=== PATIENT | female | born 1985 | race Hispanic/Latino ===

== ENCOUNTER 2021-02-23 04:01 | Emergency (ER) | payer OTHER ==
[2021-02-23 05:01] LABS: Absolute Lymphocytes (CBC) 0.9 K/uL (0.7-4.9); Basophils % 0.5 % (0-1.3); Hematocrit 33.4 % (36.0-45.0); Lymphocytes % 13.9 % (15.3-44.8); MPV 8.1 fL (7.6-11.3); RBC Red Blood Cell Count 4.06 M/uL (3.86-4.86)
[2021-02-23 05:02] LABS: Urine Blood Negative (Negative); Urine Glucose Negative (Negative); Urine Protein Negative (Negative); Urine Specific Gravity 1.015 (1.005-1.030)
[2021-02-23] MEDS ORDERED: NA CHLORIDE 0.9% 1,000 ML ONE (05:08)
[2021-02-23] MEDS ORDERED: ONDANSETRON 4 MG/2 ML VIAL ONE (05:08)
[2021-02-23 05:19] LABS: ALT/SGPT 34 U/L (12-78); AST/SGOT 18 U/L (15-37); Albumin 2.8 g/dL (3.4-5.0); Alkaline Phosphatase 112 U/L (45-117); BUN Blood Urea Nitrogen 6 mg/dL (7-18); Bicarbonate 21 mmol/L (21-32); Bilirubin Direct 0.2 mg/dL (0-0.2); Bilirubin Total 0.3 mg/dL (0.2-1.0); Glucose Level 110 mg/dL (74-106); Magnesium 2.4 mg/dL (1.8-2.4); Potassium 3.6 mmol/L (3.5-5.1); Protein, Total 7.4 g/dL (6.4-8.2); Sodium Level 139 mmol/L (136-145)
[2021-02-23] MEDS ORDERED: CALCIUM GLUCONATE 1 GM IVPB 1 GM/50 ML BAG IV ONE (06:10)
--- NOTE | 2021-02-23 07:07 | ER ---
Nurse's Notes [facility] – [place], [place] Name: Antonette Lewis Age: 35 yrs Sex: Female : 1985 Arrival Date: 02/23/2021 Time: 04:07 Bed 16 Private MD: Diagnosis: Coronavirus infection, unspecified;Hypocalcemia-mild;UTI/ Urinary tract infection, site not specified Presentation: 02/23 04:12 Chief complaint: Patient states: covid + on 02/21/21 tonight patient was woken up with kc4 shakes and muscle twitching. Pt is 30 weeks . Coronavirus screen: Vaccine status: Patient reports being unvaccinated. Client presents with at least one sign or symptom that may indicate coronavirus-19. Standard/surgical mask placed on the client. Provider contacted for isolation considerations. Client reports previous positive COVID test result. Date of collection: February 21, 2021 Staff notified of need for isolation. Ebola Screen: Patient negative for fever greater than or equal to 101.5 degrees Fahrenheit, and additional compatible Ebola Virus Disease symptoms Patient denies exposure to infectious person. Patient denies travel to an Ebola-affected area in the 21 days before illness onset. No symptoms or risks identified at this time. Initial Sepsis Screen: Does the patient meet any 2 criteria? No. Patient's initial sepsis screen is negative. Does the patient have a suspected source of infection? No. Patient's initial sepsis screen is negative. Risk Assessment: Do you want to hurt yourself or someone else? Patient reports no desire to harm self or others. Onset of symptoms was February 21, 2021. 04:12 Method Of Arrival: Ambulatory [facility] 04:12 Acuity: ROSANA 4 kc4 Triage Assessment: 04:28 General: Appears in no apparent distress. obese, well nourished, Behavior is kc4 cooperative, appropriate for age, anxious. Pain: Denies pain. MANAGER LATIN: 04:28 Verified kc4 Historical: - Allergies: 04:28 No Known Allergies; kc4 - Home Meds: 04:28 zinc sulfate 50 mg zinc (220 mg) Oral tab [Active]; Vitamin D Oral [Active]; Vitamin C kc4 500 mg Oral tab [Active]; Vitamin Oral tab 1 tab once daily [Active]; - PMHx: 04:28 None; kc4 - PSHx: 04:28 None; kc4 - Immunization history:: Adult Immunizations up to date, Client reports having NOT received the Covid vaccine. - Social history:: Smoking status: Patient denies any tobacco usage or history of. Patient/guardian denies using alcohol, street drugs, IV drugs, over the counter diet medications, tobacco products. Screenin:32 Abuse screen: Denies threats or abuse. Nutritional screening: No deficits noted. On no kc4 prescribed diet Difficulty chewing/swallowing? No. Tuberculosis screening: No symptoms or risk factors identified. Never had TB. Possible symptoms: None Risk factors: None. Fall Risk None identified. No fall in past 12 months (0 pts). No secondary diagnosis (0 pts). No IV (0 pts). Ambulatory Aid- None/Bed Rest/Nurse Assist (0 pts). Gait- Normal/Bed Rest/Wheelchair (0 pts) Mental Status- Oriented to own ability (0 pts). Total Alexander Fall Scale indicates No Risk (0-24 pts). Assessment: 04:32 General: Appears in no apparent distress. obese, well nourished, Behavior is kc4 cooperative, appropriate for age, anxious, Reports muscle twitching and shakjng Denies fever, fatigue, chills. Pain: Denies pain. Neuro: No deficits noted. Cardiovascular: No deficits noted. Respiratory: No deficits noted. GI: No deficits noted. No signs and/or symptoms were reported involving the gastrointestinal system. : No deficits noted. No signs and/or symptoms were reported regarding the genitourinary system. EENT: No deficits noted. No signs and/or symptoms were reported regarding the EENT system. Derm: No deficits noted. No signs and/or symptoms reported regarding the dermatologic system. Musculoskeletal: No deficits noted. No signs and/or symptoms reported regarding the musculoskeletal system. 07:00 Reassessment: RECD REPORT FROM MICHELA GUERRA. 35YO HF P/W COVID+, SOB, 30 WK PREG. bp 07:11 Reassessment: PT D/C HOME AMBULATORY, DX WITH SARS-COVID AND UTI. bp Vital Signs: 04:12 BP 131 / 77 RA Sitting (auto/reg); Pulse 98; Resp 20; Temp 97.9; Pulse Ox 98% on R/A; kc4 Weight 136.08 kg; Height 5 ft. 3 in. (160.02 cm); Pain 0/10; 06:08 BP 138 / 78; Pulse 88; Resp 18; Temp 98.0; Pulse Ox 99% on R/A; Pain 0/10; kc4 07:00 BP 125 / 74; Pulse 88; Resp 16; Pulse Ox 100% ; bp 04:12 Body Mass Index 53.14 (136.08 kg, 160.02 cm) kc4 Vitals: 04:53 Heart Tones 150 bpm. kc4 Mary Coma Score: 04:32 Eye Response: spontaneous(4). Verbal Response: oriented(5). Motor Response: obeys kc4 commands(6). Total: 15. ED Course: 04:07 Patient arrived in ED. bp1 04:17 Gentry Simmons MD is Attending Physician. mh7 04:28 Triage completed. kc4 04:28 Arm band placed on left wrist. kc4 04:35 No provider procedures requiring assistance completed. kc4 04:37 Patient has correct armband on for positive identification. Bed in low position. Call kc4 light in reach. Side rails up X 1. 04:54 CBC with Automated Diff Sent. kc4 04:54 CBC with Diff Sent. kc4 04:54 Basic Metabolic Panel Sent. kc4 04:54 LFT's Sent. kc4 04:54 Magnesium Sent. kc4 05:03 Inserted saline lock: 20 gauge in right antecubital area, using aseptic technique. kc4 05:10 Michela Bhakta is Primary Nurse. kc4 07:10 IV discontinued, intact, bleeding controlled, No redness/swelling at site. Pressure bp dressing applied. Administered Medications: 04:58 Drug: Zofran (Ondansetron) 4 mg Route: IVP; Site: right antecubital; kc4 06:29 Follow up: Response: No adverse reaction bs2 04:58 Drug: NS 0.9% 1000 ml Route: IV; Rate: 1000 ml; Site: right antecubital; kc4 07:19 Follow up: IV Status: Completed infusion; IV Intake: 100ml bp 06:08 Drug: Calcium Gluconate 1 grams Route: IVPB; Infused Over: 60 mins; Site: right kc4 antecubital; 07:19 Follow up: IV Status: Completed infusion; IV Intake: 1000ml bp 06:48 Drug: Macrobid (nitrofurantoin) 100 mg Route: PO; kc4 07:09 Follow up: Response: No adverse reaction bp Intake: 07:19 IV: 1000ml; Total: 1000ml. bp 07:19 IV: 100ml; Total: 1100ml. bp Outcome: 07:06 Discharge ordered by . jhonathan 07:19 Discharged to home ambulatory. bp 07:19 Condition: stable 07:19 Discharge instructions given to patient, Instructed on discharge instructions, follow up and referral plans. medication usage, Demonstrated understanding of instructions, follow-up care, medications, Prescriptions given X 1. 07:20 Patient left the ED. bp Signatures: John Hernandez RN RN bp Elana Flores Maurice, MD MD 7 Heena Root RN RN bs2 Michela Bhakta 4 Corrections: (The following items were deleted from the chart) 04:31 04:28 Home Meds: None; kc4 kc4
--- NOTE | 2021-02-23 07:07 | EDPHYS ---
Physician Documentation [facility] Name: Antonette Lewis Age: 35 yrs Sex: Female : 1985 Arrival Date: 02/23/2021 Time: 04:07 Bed 16 Private MD: ED Physician Gentry Simmons HPI: 02/23 04:30 This 35 yrs old Female presents to ER via Ambulatory with complaints of mh7 Covid+, Cough, Shaky, Nasal Congestion. 04:30 The patient or guardian reports cough, that is intermittent, described as mild, with no mh7 sputum, Nasal congestion, muscle twitching. Onset: The symptoms/episode began/occurred 1 week(s) ago. Severity of symptoms: At their worst the symptoms were mild, 5 day(s) ago, in the emergency department the symptoms are unchanged. Modifying factors: The symptoms are alleviated by OTC cold preparation, the symptoms are aggravated by nothing. Associated signs and symptoms: Pertinent positives: nausea, rhinorrhea, Pertinent negatives: chest pain, diarrhea, ear ache, fever, sore throat, vomiting. Patient states that she tested positive for Covid recently. She is 30 weeks and has not had any complications during . She reports a mild cough and started having muscle twitching last night. She denies any headache, chest pain, abdominal pain, shortness of breath, vomiting, diarrhea, dizziness, numbness/tingling, or focal weakness.. BLOCK SETTER GYPSUM: 04:28 Verified kc4 Historical: - Allergies: 04:28 No Known Allergies; kc4 - Home Meds: 04:28 zinc sulfate 50 mg zinc (220 mg) Oral tab [Active]; Vitamin D Oral [Active]; Vitamin C kc4 500 mg Oral tab [Active]; Vitamin Oral tab 1 tab once daily [Active]; - PMHx: 04:28 None; kc4 - PSHx: 04:28 None; kc4 - Immunization history:: Adult Immunizations up to date, Client reports having NOT received the Covid vaccine. - Social history:: Smoking status: Patient denies any tobacco usage or history of. Patient/guardian denies using alcohol, street drugs, IV drugs, over the counter diet medications, tobacco products. ROS: 04:30 Constitutional: Negative for fever, chills, and weight loss, Eyes: Negative for injury, mh7 pain, redness, and discharge, ENT: Negative for injury, pain, and discharge, Neck: Negative for injury, pain, and swelling. 04:30 Cardiovascular: Negative for chest pain, palpitations, and edema. 04:30 Back: Negative for injury and pain, : Negative for injury, bleeding, discharge, and swelling, MS/Extremity: Negative for injury and deformity, Skin: Negative for injury, rash, and discoloration, Neuro: Negative for headache, weakness, numbness, tingling, and seizure, Psych: Negative for depression, anxiety, suicide ideation, homicidal ideation, and hallucinations, Allergy/Immunology: Negative for hives, rash, and allergies, Endocrine: Negative for neck swelling, polydipsia, polyuria, polyphagia, and marked weight changes, Hematologic/Lymphatic: Negative for swollen nodes, abnormal bleeding, and unusual bruising. 04:30 Respiratory: Negative for dyspnea on exertion, hemoptysis, orthopnea, pleurisy, shortness of breath, sputum production, wheezing. 04:30 Abdomen/GI: Negative for abdominal pain, vomiting, diarrhea, constipation, abdominal cramps, abdominal distension, anorexia, dysphagia, hematemesis, black/tarry stool, rectal pain, rectal bleeding, bowel incontinence, flatulence. Exam: 04:30 Constitutional: This is a well developed, well nourished patient who is awake, alert, mh7 and in no acute distress. Head/Face: Normocephalic, atraumatic. Eyes: Pupils equal round and reactive to light, extra-ocular motions intact. Lids and lashes normal. Conjunctiva and sclera are non-icteric and not injected. Cornea within normal limits. Periorbital areas with no swelling, redness, or edema. Neck: Trachea midline, no thyromegaly or masses palpated, and no cervical lymphadenopathy. Supple, full range of motion without nuchal rigidity, or vertebral point tenderness. No Meningismus. Chest/axilla: Normal chest wall appearance and motion. Nontender with no deformity. No lesions are appreciated. Cardiovascular: Regular rate and rhythm with a normal S1 and S2. No gallops, murmurs, or rubs. Normal PMI, no JVD. No pulse deficits. Respiratory: Lungs have equal breath sounds bilaterally, clear to auscultation and percussion. No rales, rhonchi or wheezes noted. No increased work of breathing, no retractions or nasal flaring. Abdomen/GI: Soft, non-tender, with normal bowel sounds. No distension or tympany. No guarding or rebound. No evidence of tenderness throughout. Back: No spinal tenderness. No costovertebral tenderness. Full range of motion. Skin: Warm, dry with normal turgor. Normal color with no rashes, no lesions, and no evidence of cellulitis. MS/ Extremity: Pulses equal, no cyanosis. Neurovascular intact. Full, normal range of motion. Neuro: Awake and alert, GCS 15, oriented to person, place, time, and situation. Cranial nerves II-XII grossly intact. Motor strength 5/5 in all extremities. Sensory grossly intact. Cerebellar exam normal. Normal gait. Psych: Awake, alert, with orientation to person, place and time. Behavior, mood, and affect are within normal limits. 06:56 ECG was reviewed by the Attending Physician. [facility] Vital Signs: 04:12 BP 131 / 77 RA Sitting (auto/reg); Pulse 98; Resp 20; Temp 97.9; Pulse Ox 98% on R/A; kc4 Weight 136.08 kg; Height 5 ft. 3 in. (160.02 cm); Pain 0/10; 06:08 BP 138 / 78; Pulse 88; Resp 18; Temp 98.0; Pulse Ox 99% on R/A; Pain 0/10; kc4 07:00 BP 125 / 74; Pulse 88; Resp 16; Pulse Ox 100% ; bp 04:12 Body Mass Index 53.14 (136.08 kg, 160.02 cm) kc4 Mary Coma Score: 04:32 Eye Response: spontaneous(4). Verbal Response: oriented(5). Motor Response: obeys kc4 commands(6). Total: 15. MDM: 07:01 Differential Diagnosis: Bronchitis Influenza Upper Respiratory Infection Allergic 7 Rhinitis Viral Syndrome. Data reviewed: vital signs, nurses notes, lab test result(s), CBC, electrolytes, urinalysis. Data interpreted: Pulse oximetry: on room air is 99 %. Interpretation: normal. Counseling: I had a detailed discussion with the patient and/or guardian regarding: the historical points, exam findings, and any diagnostic results supporting the discharge/admit diagnosis, the presence of at least one elevated blood pressure reading (>120/80) during this emergency department visit, lab results, the need for outpatient follow up, an OB/Gyne specialist, to return to the emergency department if symptoms worsen or persist or if there are any questions or concerns that arise at home. Response to treatment: the patient's symptoms have resolved after treatment, the patient's blood pressure is in an acceptable range, mental status has returned to baseline, the patient no longer shows bradycardia, the patient is not short of breath, the patient is not tachycardic, the patient's pain is gone, the patient's temperature has normalized. Refusal of service: The patient/guardian displays adequate decision making capability and despite a detailed discussion of alternatives, benefits, risks, and consequences refuses: all X-rays. 07:06 Patient medically screened. 02/23 04:39 Order name: CBC with Diff 02/23 04:39 Order name: Basic Metabolic Panel; Complete Time: 05:33 02/23 04:39 Order name: LFT's; Complete Time: 05:33 02/23 04:39 Order name: Magnesium; Complete Time: 05:33 02/23 04:39 Order name: CBC with Automated Diff; Complete Time: 05:18 [facility] 02/23 05:01 Order name: Urine Dipstick-Ancillary; Complete Time: 05:18 [facility] 02/23 04:39 Order name: Urine Dipstick-Ancillary (obtain specimen); Complete Time: 06:29 02/23 04:39 Order name: Heart Tones; Complete Time: 04:53 02/23 05:39 Order name: EKG; Complete Time: 05:39 02/23 05:39 Order name: EKG - Nurse/Tech; Complete Time: 06:29 mh7 EC:56 Rate is 85 beats/min. Rhythm is regular. QRS [place] is Normal. ND interval is normal. QRS mh7 interval is normal. QT interval is normal. No Q waves. T waves are Normal. No ST changes noted. Clinical impression: Normal ECG. Administered Medications: 04:58 Drug: Zofran (Ondansetron) 4 mg Route: IVP; Site: right antecubital; kc4 06:29 Follow up: Response: No adverse reaction bs2 04:58 Drug: NS 0.9% 1000 ml Route: IV; Rate: 1000 ml; Site: right antecubital; 4 07:19 Follow up: IV Status: Completed infusion; IV Intake: 100ml bp 06:08 Drug: Calcium Gluconate 1 grams Route: IVPB; Infused Over: 60 mins; Site: right kc4 antecubital; 07:19 Follow up: IV Status: Completed infusion; IV Intake: 1000ml bp 06:48 Drug: Macrobid (nitrofurantoin) 100 mg Route: PO; kc4 07:09 Follow up: Response: No adverse reaction bp Disposition Summary: 02/23/21 07:06 Discharge Ordered Location: Home [facility] Problem: new [facility] Symptoms: have improved [facility] Condition: Stable [facility] Diagnosis - Coronavirus infection, unspecified [facility] - Hypocalcemia - mild [facility] - UTI/ Urinary tract infection, site not specified [facility] Followup: [facility] - With: Private Physician - When: 1 - 2 days - Reason: Worsening of condition, Recheck today's complaints, Continuance of care, Re-evaluation by your physician Discharge Instructions: - Discharge Summary Sheet [facility] - Urinary Tract Infection, Adult, [id number] [facility] - Hypocalcemia, Adult [facility] - COVID-19 [facility] - COVID-19: Quarantine vs. Isolation - [place] [id number] Forms: - Medication Reconciliation Form [facility] - Thank You Letter [facility] - Antibiotic Education [facility] - Prescription Opioid Use [facility] Prescriptions: - Macrobid 100 mg Oral Capsule - take 1 capsule by ORAL route every 12 hours for 7 days; 14 capsule; Refills: 0, 7 Product Selection Permitted Signatures: Dispatcher [employer] Gentry Arnold MD MD 7 Michela Bhakta 4 John Hernandez RN, Bridget RN bs2 Corrections: (The following items were deleted from the chart) 04:31 04:28 Home Meds: None; 4 kc4
[2021-02-23] MEDS ORDERED: NITROFURAN MACRO 100 MG CAP PO ONE (07:12)
[2021-02-23 07:28] VITALS: TEMP 98
[2021-02-23 07:30] VITALS: BP 125/74; O2SAT 100
== END 2021-02-23 07:20 | disposition home or self-care (01) ==
LOC: ER 04:01
DX: O98.513 Other viral diseases complicating pregnancy, third trimester (principal); U07.1 COVID-19; O23.43 Unspecified infection of urinary tract in pregnancy, third trimester; E83.51 Hypocalcemia; Z3A.30 30 weeks gestation of pregnancy
CPT/HCPCS: 96365; 96361; 93005; 85025; 80048; 36415; 83735; 80076; 81003; 96375; 99284; J0610; J7030; J2405